=== PATIENT | female | born 1975 | race Caucasian/White ===

== ENCOUNTER → 2017-08-19 | Day surgery (SDC) | payer OTHER ==
[~2017-08-19] MED LIST: ACETAMINOPHEN 1000 MG/100 ML 100 ML IV ONE; APREPITANT 40 MG CAP ONE; ENOX40P SC; LACTATED RINGER'S 1000 ML INJ 1,000 ML ONE; MIDAZOLAM HCL 5 MG/5 ML VIAL ONE; ONDANSETRON HCL 4 MG/2 ML VIAL IV PUSH ONE; PRENTAB72 PO; PROPOFOL 200 MG/20 ML AMP IV ONE; RANI150; SODIUM CHLORIDE 0.9% 250 ML ADDBAG IV ONE; VANCOMYCIN HCL 1000 MG VIAL ONE; ceFAZolin INJ 1,000 MG VIAL ONE
--- NOTE | 2017-08-25 01:18 | MP ---
cc: Carlin Mcintyre MD DATE OF OPERATION: 08/19/2017 PROCEDURE PERFORMED: Bilateral simple mastectomies, with intraoperative localization and removal of sentinel lymph node, right axilla x 3. PREOPERATIVE DIAGNOSIS: Invasive ductal carcinoma, right breast. POSTOPERATIVE DIAGNOSIS: Invasive ductal carcinoma, right breast. ANESTHESIA: LMA. SURGEON: Carlin Mcintyre MD ESTIMATED BLOOD LOSS: 100 mL FLUIDS: 1150 mL crystalloid. COMPLICATIONS: None. DRAINS: ReliaVac x 2. SPECIMEN: Left and right breasts, as well as right axillary sentinel nodes x 3 to pathology. PROCEDURE IN DETAIL: The patient was seen in the Department of Nuclear Medicine, where she underwent injection with technetium-99 sulfur colloid. She was taken back for imaging, which demonstrated a questionable intramammary node in the upper deep portion of the breast, under the primary site. The patient, thus, underwent injection with Lymphazurin blue dye. This was accomplished after laryngeal mask anesthesia was instituted and the breasts were prepped. This was accomplished after timeout was taken, confirming the correct patient, site and procedures to be performed. Attention was turned to the left side first and a Patey-type incision was made, including the nipple areolar complex. Dissection was carried out superiorly and inferiorly, creating superior and inferior skin flaps. Dissection was carried down to the inframammary fold. The breast was taken off of the muscle in a medial to lateral fashion. The breast was passed off the table. The wound was inspected and with hemostasis assured, a ReliaVac drain was brought out via separate stab incision and affixed to the skin with a 3-0 nylon suture. The wound was closed in 2 layers with interrupted 2-0 Vicryl suture and 5-0 PDS in a running subcuticular fashion. The left breast was toweled off and attention turned to the right side. The right breast was incised, as before, including the nipple areolar complex. Care was taken to include the tissue in the 12 o'clock position of the breast, with extra care taken to make sure that there was a good gross margin. Dissection was carried down to the inframammary fold and up to the clavicle. The breast was swept off of the chest wall in a medial to lateral fashion. Careful examination of the axilla revealed blue channels and examination with the navigator probe revealed activity above background. A total of 3 lymph nodes were removed from the axilla, all of which had activity above background and 2 of which were blue. These were passed off and sent for specimen analysis separately. The breast was then completely excised from the chest wall and oriented with silk sutures and passed off the table. The wound was reinspected and made hemostatic with electrocautery. A ReliaVAC drain was brought out via an inferiorly based stab incision and fixed to the skin with a 3-0 nylon suture as on the left. The wound was closed in 2 layers with interrupted 2-0 Vicryl suture and 5-0 PDS in a running subcuticular fashion. The wounds on both sides were dressed with Steri-Strips. 4 x 4's were applied around the ReliaVac drains. The patient was extubated and taken back to the recovery room in stable condition. She tolerated the procedure well. MD IDRIS Greene/RGEGORY , 08:54 PM , 01:16 AM
== END | disposition home or self-care (01) ==
LOC: ESDC 08:57
PROVIDERS: ATTEND Surgery Trauma Surgery
DX: C50.911 Malignant neoplasm of unspecified site of right female breast (principal)
CPT/HCPCS: 00400; 01610; 19303; 38525; 38792; 88307; J0131; J0690; J2250; J2270; J2405; J3010; J3370; J7120; J8501; Q9968